=== PATIENT | male | born 1990 ===

== ENCOUNTER 2018-02-16 19:30 | Outpatient (CLI) | payer BC | END 2018-02-16 19:31 | disposition home or self-care (01) | LOC: SLEEPLAB 19:30 | PROVIDERS: ATTEND Family Medicine | DX: R53.83 Other fatigue (principal); G47.33 Obstructive sleep apnea (adult) (pediatric) | CPT/HCPCS: 95810 ==

== ENCOUNTER 2018-03-14 19:30 | Outpatient (CLI) | payer BC | END 2018-03-14 19:31 | disposition home or self-care (01) | LOC: SLEEPLAB 19:30 | PROVIDERS: ATTEND Family Medicine | DX: G47.33 Obstructive sleep apnea (adult) (pediatric) (principal); R53.83 Other fatigue | CPT/HCPCS: 95811 ==